=== PATIENT | male | born 1985 | race Caucasian/White ===

== ENCOUNTER 2017-04-24 20:53 | Emergency (ER) | payer MEDICAID ==
[~2017-04-24] VITALS: Ht 170.2 cm; Wt 90.7 kg
[2017-04-24 21:10] VITALS: BP 131/80
--- NOTE | 2017-04-24 21:37 | NUR ---
Patient to [facility].
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
--- NOTE | 2017-04-24 22:35 | NUR ---
Patient ambulated to bed 07.
--- NOTE | 2017-04-25 00:13 | NUR ---
Dr. Ledezma evaluating patient at bedside.
[2017-04-25] MEDS ORDERED: TETRACAINE 0.5% OPTH SOL 2 ML BTL ONE (00:25)
[2017-04-25] MEDS ORDERED: FLUORESCEIN OPTH STRIP 1 MG ONE (00:25)
[2017-04-25] MEDS ORDERED: TETRACAINE 0.5% OPTH SOL 2 ML BTL OP ONE (00:30)
[2017-04-25 00:50] VITALS: BP 123/64
--- NOTE | 2017-04-25 00:50 | NUR ---
Patient discharged with v/s stable. Written and verbal after care instructions given and explained. Patient verbalized understanding. Ambulatory with steady gait. All questions addressed prior to discharge. Advised to follow up with PMD OR RETURN TO ER IF CONDITION WORSENS.
== END 2017-04-25 00:50 | disposition home or self-care (01) ==
LOC: MED 20:53
DX: H11.33 Conjunctival hemorrhage, bilateral (principal)
CPT/HCPCS: 99283

== ENCOUNTER 2021-05-03 16:10 | Emergency (ER) | payer MEDICAID ==
[~2021-05-03] VITALS: Ht 170.2 cm; Wt 93.0 kg
[2021-05-03] MEDS ORDERED: KETOROLAC 30 MG/ML VIAL IM ONE (16:50)
--- NOTE | 2021-05-03 17:40 | NUR ---
Positive relief from pain; rates 6/10.
[2021-05-03] MEDS ORDERED: NAPR-1704 PO (17:46)
--- NOTE | 2021-05-03 17:56 | NUR ---
Patient ambulated to bed 6. RN evaluating the patient at bedside.
--- NOTE | 2021-05-03 17:57 | NUR ---
MERARI UMANZOR EVALUATING PT AT BEDSIDE
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
[2021-05-03 18:47] VITALS: BP 132/82
== END 2021-05-03 18:39 | disposition home or self-care (01) ==
LOC: MED 16:10
DX: S16.1XXA Strain of muscle, fascia and tendon at neck level, initial encounter (principal); S46.811A Strain of other muscles, fascia and tendons at shoulder and upper arm level, right arm, initial encounter; S76.011A Strain of muscle, fascia and tendon of right hip, initial encounter; S20.20XA Contusion of thorax, unspecified, initial encounter; Z79.899 Other long term (current) drug therapy; Z98.890 Other specified postprocedural states; V29.9XXA Motorcycle rider (driver) (passenger) injured in unspecified traffic accident, initial encounter; Y93.89 Activity, other specified; Y92.89 Other specified places as the place of occurrence of the external cause; Y99.8 Other external cause status
CPT/HCPCS: 71101; 72040; 73502; 96372; 99284; J1885